=== PATIENT | female | born 1950 | race Caucasian/White ===

== ENCOUNTER → 2019-05-19 18:35 | Outpatient (CLI) | payer OTHER, SELFPAY ==
--- NOTE | 2019-05-19 18:45 | DI.RAD.S_ITS ---
PROCEDURE: XR LUMBAR SPINE 2-3V INDICATIONS: LUMBAR BACK PAIN, AGE RELATED OSTEOPOROSIS TECHNIQUE: 3 views of the lumbar spine were acquired. COMPARISON: None. FINDINGS: Bones: 5 cle-rel-fsobttt vertebrae are present. There is normal bony alignment. Degenerative endplate changes at L3-4 through L5-S1 levels are seen. No vertebral body compression fractures. No suspicious bony lesions. Soft tissues: Overlying bowel gas pattern is normal. No suspicious soft tissue calcifications. IMPRESSION: Mild degenerative disc disease in lower lumbar spine. No compression fracture or spondylolisthesis. Dictated by: Junior Morton M.D. on 05/19/2019 at 20:17 Approved by: Junior Morton M.D. on 05/19/2019 at 20:18
--- NOTE | 2019-05-19 18:45 | DI.RAD.S_ITS ---
PROCEDURE: XR HIP W PEL IF DONE LT MIN 4V INDICATIONS: AGE RELATED OSTEOPOROSIS TECHNIQUE: AP pelvis with lateral view(s) of the bilateral hip(s). COMPARISON: None. FINDINGS: Bones: No fractures or dislocations. Pelvic ring appears intact. No suspicious bony lesions. Mild bilateral hip joint space narrowing is seen. Soft tissues: The visualized bowel gas pattern is normal. No suspicious soft tissue calcifications. IMPRESSION: Very mild bilateral hip joint space narrowing. No fracture or dislocation. No evidence of avascular necrosis of femoral heads. Dictated by: Junior Morton M.D. on 05/19/2019 at 20:17 Approved by: Junior Morton M.D. on 05/19/2019 at 20:17
== END ==
PROVIDERS: Visit Provider Family Medicine
DX: M81.0 Age-related osteoporosis without current pathological fracture (principal); M54.5 Low back pain; M51.36 Other intervertebral disc degeneration, lumbar region
CPT/HCPCS: 72100; 73522

== ENCOUNTER → 2020-10-24 10:15 | Outpatient (CLI) | payer MEDICARE, OTHER, SELFPAY ==
[2020-10-25 06:07] LABS: Free T4, Direct Thyroxine 1.19 ng/dL (0.78-2.19)
[2020-10-25 21:39] LABS: Thyroid Peroxidase Antibodies <9 IU/mL (0-34)
== END ==
PROVIDERS: PCP Physician Assistant Medical; Visit Provider Physician Assistant Medical
DX: L29.9 Pruritus, unspecified (principal); E06.9 Thyroiditis, unspecified; N76.0 Acute vaginitis
CPT/HCPCS: 84439; 84443; 84481; 86376

== ENCOUNTER → 2020-11-07 09:50 | Outpatient (CLI) | payer MEDICARE, OTHER, SELFPAY ==
[2020-11-08 13:48] LABS: Candida species Positive (Negative); Gardnerella vaginalis Negative (Negative); Trichomoas vaginalis Negative (Negative)
== END ==
PROVIDERS: PCP Physician Assistant Medical; Visit Provider Obstetrics & Gynecology
DX: L29.9 Pruritus, unspecified (principal); L90.0 Lichen sclerosus et atrophicus; N76.1 Subacute and chronic vaginitis
CPT/HCPCS: 87480; 87510; 87660

== ENCOUNTER → 2021-03-21 08:37 | Outpatient (CLI) | payer MEDICARE, OTHER, SELFPAY ==
[2021-03-21 19:36] LABS: Free T3, Triiodothyronine Free 3.52 pg/mL (2.77-5.27); Free T4, Direct Thyroxine 1.48 ng/dL (0.78-2.19)
[2021-03-21 19:37] LABS: Progesterone, Total 0.84 ng/mL
== END ==
PROVIDERS: PCP Physician Assistant Medical
DX: E89.0 Postprocedural hypothyroidism (principal); Z79.890 Hormone replacement therapy
CPT/HCPCS: 82670; 82679; 84144; 84402; 84439; 84481

== ENCOUNTER → 2021-04-18 09:56 | Outpatient (CLI) | payer MEDICARE, OTHER, SELFPAY ==
[2021-04-18 22:06] LABS: COVID19 - ORCAS (NP or Nasal) Negative (Negative)
== END ==
PROVIDERS: PCP Physician Assistant Medical; Visit Provider Physician Assistant Medical
DX: Z20.822 Contact with and (suspected) exposure to COVID-19 (principal)
CPT/HCPCS: C9803; U0003

== ENCOUNTER → 2021-04-29 11:06 | Outpatient (CLI) | payer MEDICARE, OTHER, SELFPAY ==
[2021-04-29 20:06] LABS: Progesterone, Total 0.47 ng/mL
[2021-04-29 20:22] LABS: Estradiol, Total 132.7 pg/mL
== END ==
PROVIDERS: PCP Physician Assistant Medical
DX: N95.1 Menopausal and female climacteric states (principal); Z79.890 Hormone replacement therapy
CPT/HCPCS: 82670; 82679; 84144

== ENCOUNTER → 2021-04-30 10:34 | Outpatient (CLI) | payer MEDICARE, OTHER, SELFPAY ==
[2021-04-30 19:22] LABS: Add Manual Diff / Slide Review NO; Basophils Absolute Auto 0 /uL (0-100); Basophils Percent Auto 0.6 % (0-2); Eosinophils Absolute Auto 100 /uL (0-450); Eosinophils Percent Auto 1.6 % (2-4); Hematocrit 39.7 % (36-46); Hemoglobin 12.7 g/dL (12.0-16.0); Lymphocytes Absolute Auto 2200 /uL (1100-4500); Lymphocytes Percent Auto 33.9 % (25-40); Mean Corpuscular Hemoglobin 26.9 PG (26-34); Mean Corpuscular Volume 84.2 fL (80-100); Monocytes Absolute Auto 600 /uL (0-900); Neutrophils Absolute Auto 3500 /uL (1500-7000); Neutrophils Percent Auto 54.9 % (50-75); Platelet Count 235 X10^3/uL (150-400); Red Blood Cell Count 4.71 X10^6/uL (4.0-5.2); Red Cell Distribution Width 14.6 % (11.6-14.8); White Blood Cell Count 6.3 X10^3/uL (4.5-11.0)
[2021-04-30 19:24] LABS: Alanine Aminotransferase 26 IU/L (<35); Albumin 4.1 g/dL (3.5-5.0); Albumin Globulin Ratio 1.5 (1.0-2.8); Alkaline Phosphatase 56 U/L (38-126); Aspartate Aminotransferase 25 IU/L (14-36); BUN Creatinine Ratio 41.8 (6-22); Bilirubin Total 0.4 mg/dL (0.2-1.3); Blood Urea Nitrogen 23 mg/dL (7-17); Carbon Dioxide 30 mmol/L (22-32); Chloride 106 mmol/L (98-107); Estimated Glomerular Filt Rate > 60.0 mL/min (>60); Globulin 2.8 g/dL (1.7-4.1); Glucose 108 mg/dL (80-110); HEMOLYSIS < 15 (0-50); Potassium 4.2 mmol/L (3.4-5.1); Sodium 142 mmol/L (137-145); Total Protein 6.9 g/dL (6.3-8.2)
== END ==
PROVIDERS: PCP Physician Assistant Medical; Visit Provider Physician Assistant
DX: R59.9 Enlarged lymph nodes, unspecified (principal); R11.0 Nausea; R53.83 Other fatigue
CPT/HCPCS: 80053; 85025

== ENCOUNTER → 2021-05-20 13:42 | Outpatient (CLI) | payer MEDICARE, OTHER, SELFPAY ==
[2021-05-20 19:34] LABS: Alanine Aminotransferase 27 IU/L (<35); Albumin 4.6 g/dL (3.5-5.0); Albumin Globulin Ratio 1.5 (1.0-2.8); Alkaline Phosphatase 62 U/L (38-126); Aspartate Aminotransferase 23 IU/L (14-36); BUN Creatinine Ratio 40.4 (6-22); Bilirubin Total 0.5 mg/dL (0.2-1.3); Blood Urea Nitrogen 23 mg/dL (7-17); Calcium 9.3 mg/dL (8.4-10.2); Carbon Dioxide 32 mmol/L (22-32); Chloride 105 mmol/L (98-107); Estimated Glomerular Filt Rate > 60.0 mL/min (>60); Glucose 91 mg/dL (80-110); HEMOLYSIS 16 (0-50); Potassium 4.2 mmol/L (3.4-5.1); Sodium 141 mmol/L (137-145); Total Protein 7.6 g/dL (6.3-8.2)
== END ==
PROVIDERS: PCP Physician Assistant Medical; Visit Provider Physician Assistant
DX: N28.9 Disorder of kidney and ureter, unspecified (principal)
CPT/HCPCS: 80053

== ENCOUNTER 2021-06-09 18:18 | Emergency (ER) | payer MEDICARE, OTHER, SELFPAY ==
[2021-06-09 18:40] VITALS: BP 124/58; PULSE 85; RESP 16; TEMP 37; O2SAT 98; BMI 20.4
--- NOTE | 2021-06-09 21:43 | DI.RAD.S_ITS ---
PROCEDURE: XR CHEST 1V INDICATIONS: chest pain TECHNIQUE: One view of the chest was acquired. COMPARISON: None. FINDINGS: Surgical changes and devices: None. Lungs and pleura: There is hyperinflation of the lungs with flattening of the hemidiaphragms compatible with COPD. No acute consolidation. No pleural effusions or pneumothorax. Mediastinum: Mediastinal contours appear normal. Heart size is normal. Bones and chest wall: No suspicious bony lesions. Overlying soft tissues appear unremarkable. IMPRESSION: 1. No definite acute cardiopulmonary disease. 2. Findings compatible with COPD. Dictated by: Randal Martin M.D. on 06/09/2021 at 22:31 Approved by: Randal Martin M.D. on 06/09/2021 at 22:31
[2021-06-09 22:28] VITALS: PULSE 73; RESP 14; O2SAT 97
[2021-06-09 22:30] VITALS: BP 99/52; PULSE 72; RESP 12; O2SAT 97
[2021-06-09 22:36] LABS: Add Manual Diff / Slide Review NO; Basophils Absolute Auto 100 /uL (0-100); Basophils Percent Auto 0.7 % (0-2); Eosinophils Absolute Auto 100 /uL (0-450); Eosinophils Percent Auto 1.3 % (2-4); Hematocrit 39.9 % (36-46); Hemoglobin 12.9 g/dL (12.0-16.0); Lymphocytes Absolute Auto 2500 /uL (1100-4500); Lymphocytes Percent Auto 33.4 % (25-40); Mean Corpuscular HGB Conc 32.5 % (30-36); Mean Corpuscular Hemoglobin 27.1 PG (26-34); Mean Corpuscular Volume 83.5 fL (80-100); Monocytes Absolute Auto 700 /uL (0-900); Monocytes Percent Auto 9.1 % (3-14); Neutrophils Absolute Auto 4100 /uL (1500-7000); Neutrophils Percent Auto 55.5 % (50-75); Platelet Count 228 X10^3/uL (150-400); Red Blood Cell Count 4.78 X10^6/uL (4.0-5.2); Red Cell Distribution Width 14.7 % (11.6-14.8); White Blood Cell Count 7.4 X10^3/uL (4.5-11.0)
[2021-06-09 22:41] LABS: Alanine Aminotransferase 22 IU/L (<35); Albumin 4.3 g/dL (3.5-5.0); Albumin Globulin Ratio 1.4 (1.0-2.8); Alkaline Phosphatase 50 U/L (38-126); Aspartate Aminotransferase 22 IU/L (14-36); BUN Creatinine Ratio 51.9 (6-22); Bilirubin Total 0.2 mg/dL (0.2-1.3); Blood Urea Nitrogen 27 mg/dL (7-17); Calcium 9.3 mg/dL (8.4-10.2); Carbon Dioxide 27 mmol/L (22-32); Chloride 106 mmol/L (98-107); Creatine Kinase < 20 U/L (30-135); Estimated Glomerular Filt Rate > 60.0 mL/min (>60); Globulin 3.1 g/dL (1.7-4.1); Glucose 91 mg/dL (80-110); HEMOLYSIS < 15 (0-50); Lipase 52 U/L (23-300); Magnesium 1.9 mg/dL (1.6-2.3); Potassium 3.7 mmol/L (3.4-5.1); Sodium 141 mmol/L (137-145); Total Protein 7.4 g/dL (6.3-8.2)
[2021-06-09 22:53] LABS: Troponin I < 0.012 ng/mL (0.01-0.034)
[2021-06-09 23:00] VITALS: BP 117/59; PULSE 78; RESP 15; O2SAT 97
--- NOTE | 2021-06-09 23:11 | ED_ITS ---
HPI - Chest Pain General Chief Complaint: Chest Pain Stated Complaint: Chest Pain Time Seen by Provider: 06/09/21 23:02 Source: patient Mode of arrival: Ambulatory Limitations: no limitations History of Present Illness HPI narrative: Patient is a 70-year-old female who a couple days ago had a single episode where she woke up in the middle of night feeling short of breath and had some chest discomfort. She felt like get lasted for less than 1 hour and then completely resolved. Has not had the symptoms before. Has not had the symptoms since then. No fevers. No coughing. Not currently short of breath. Not currently having chest pain. No prior heart issues. Not on anticoagulation. No other associated symptoms. She felt like when she was having the symptoms that it was not worse with palpation or movement or breathing. Related Data Previous Rx's Medication Instructions Recorded propranolol 20 mg tablet 20 mg PO BID #180 tab 03/07/21 clobetasol 0.05 % topical ointment 1 applic TOPICAL DAILY #30 g 03/19/21 ondansetron HCl 4 mg tablet 4 mg PO Q8H PRN #3 tab 04/30/21 (Zofran) fluconazole 150 mg tablet 150 mg PO DAILY #1 tab 05/20/21 (Diflucan) Allergies Allergy/AdvReac Type Severity Reaction Status Date / Time No Known Drug Allergies Allergy Verified 06/09/21 18:40 Review of Systems Constitutional Constitutional: Reports system reviewed and no additional complaints, except as documented Cardiovascular Cardiovascular: Reports system reviewed and no additional complaints, except as documented Respiratory Respiratory: Reports system reviewed and no additional complaints, except as documented Gastrointestinal Gastrointestinal: Reports system reviewed and no additional complaints, except as documented Musculoskeletal Musculoskeletal: Reports system reviewed and no additional complaints, except as documented Integumentary/Breasts Skin/Breast: Reports system reviewed and no additional complaints, except as documented Hematologic/Lymphatic On Anticoagulants: No Patient History Medical History Educated about COVID-19 virus infection History of colonic polyps History of underactive thyroid History of vitamin D deficiency Screening for lipid disorders Surgical History (Updated 11/07/20 @ 08:55 by Ally Gandara MD) H/O section Social History Smoking Status: Never smoker Smoking Status: Never smoker Substance Use Type: does not use Exam Initial Vital Signs Initial Vital Signs: Vital Signs Temperature 98.6 F 06/09/21 18:40 Pulse Rate 85 06/09/21 18:40 Respiratory Rate 16 06/09/21 18:40 Blood Pressure 124/58 L 06/09/21 18:40 Pulse Oximetry 98 06/09/21 18:40 Const General: cooperative, healthy appearing, comfortable and well developed HENMT Head: normal to inspection and normocephalic Resp Effort & Inspection: normal respiratory effort Auscultation: clear to auscultation bilaterally Cardio Rate: regular rate Rhythm: regular rhythm Skin General: no rashes or lesions noted Neuro General: patient alert, patient awake, patient oriented x3 and moves all extremities Extrem General: normal to inspection and capillary refill normal Psych Appearance: grossly normal and well kempt Scores HEART Score Heart Score history: Slightly Suspicious Heart Score EKG: Normal Heart Score Age: > or = 65 years old Heart Score risk factors: No known risk factors Heart Score troponin: < or = to normal limit Heart Score Total: 2 Course Orders Ordered: ED Orders 06/09/21 21:43 XR chest 1V Stat 06/09/21 22:00 Complete Blood Count AUTO DIFF Stat Comprehensive Metabolic Panel Stat Lipase Stat Magnesium Stat Troponin & CK Cardiac Panel Stat 06/09/21 22:36 EKG-12 Lead Stat Vital Signs Vital signs: Vital Signs - 8 hr 06/09/21 22:28 06/09/21 22:30 06/09/21 23:00 Pulse Rate 73 72 78 Respiratory Rate 14 12 15 Blood Pressure 99/52 L 117/59 L Pulse Oximetry 97 97 97 MDM - Chest Pain Lab Data Attestation: I reviewed the patient's lab results. Result diagrams: 06/09/21 22:00 06/09/21 22:00 Labs: Lab Results 06/09/21 06/09/21 Range/Units 22:00 22:00 WBC 7.4 (4.5-11.0) X10^3/uL RBC 4.78 (4.0-5.2) X10^6/uL Hgb 12.9 (12.0-16.0) g/dL Hct 39.9 (36-46) % MCV 83.5 (80-100) fL MCH 27.1 (26-34) PG MCHC 32.5 (30-36) % RDW 14.7 (11.6-14.8) % Plt Count 228 (150-400) X10^3/uL Neut % (Auto) 55.5 (50-75) % Lymph % (Auto) 33.4 (25-40) % [place] % (Auto) 9.1 (3-14) % Eos % (Auto) 1.3 L (2-4) % Baso % (Auto) 0.7 (0-2) % Neut # (Auto) 4100 (1910-2961) /uL Lymph # (Auto) 2500 (8390-7587) /uL [place] # (Auto) 700 (0-900) /uL Eos # (Auto) 100 (0-450) /uL Baso # (Auto) 100 (0-100) /uL Sodium 141 (137-145) mmol/L Potassium 3.7 (3.4-5.1) mmol/L Chloride 106 (98-107) mmol/L Carbon Dioxide 27 (22-32) mmol/L BUN 27 H (7-17) mg/dL Creatinine 0.52 (0.52-1.04) mg/dL Estimated GFR > 60.0 (>60) mL/min BUN/Creatinine Ratio 51.9 H (6-22) Glucose 91 (80-110) mg/dL Calcium 9.3 (8.4-10.2) mg/dL Magnesium 1.9 (1.6-2.3) mg/dL Total Bilirubin 0.2 (0.2-1.3) mg/dL AST 22 (14-36) IU/L ALT 22 (<35) IU/L Alkaline Phosphatase 50 (38-126) U/L Total Creatine Kinase < 20 L (30-135) U/L CK-MB (CK-2) TNP CK-MB (CK-2) Rel Index TNP Troponin I < 0.012 (0.01-0.034) ng/mL Total Protein 7.4 (6.3-8.2) g/dL Albumin 4.3 (3.5-5.0) g/dL Globulin 3.1 (1.7-4.1) g/dL Albumin/Globulin Ratio 1.4 (1.0-2.8) Lipase 52 (23-300) U/L Imaging Data Chest x-ray: Radiologist's Impression: [address] [address] XRay Report Signed Patient: Yancy Starr MR#: [id number] : 1950 Acct:[id number] Age/Sex: 70 / F Date of Service: 06/09/21 Loc: ED Accession Number: [id number] ?? Procedure: XR chest 1V Ordering Provider: Karlos Hagan D.O. PROCEDURE:? XR CHEST 1V ? INDICATIONS:? chest pain ? TECHNIQUE:? One view of the chest was acquired.? ? COMPARISON:? None. ? FINDINGS:? ? Surgical changes and devices:? None.? ? Lungs and pleura:? There is hyperinflation of the lungs with flattening of the hemidiaphragms compatible with COPD.? No acute consolidation.? No pleural effusions or pneumothorax.? ? Mediastinum:? Mediastinal contours appear normal.? Heart size is normal.? ? Bones and chest wall:? No suspicious bony lesions.? Overlying soft tissues appear unremarkable.? ? IMPRESSION:? ? 1. No definite acute cardiopulmonary disease. ? 2. Findings compatible with COPD.? ? ? Dictated by: Randal Martin M.D. on 06/09/2021 at 22:31 ? ? Approved by: Randal Martin M.D. on 06/09/2021 at 22:31? ECG Data Attestation: I personally reviewed and interpreted this ECG as follows: Interpretation: Sinus rhythm Ventricular rate is 66 Normal axis Normal QRS Normal QTC No ST wave changes MDM Narrative Medical decision making narrative: Patient is not hypoxic, not tachypneic, no acute changes on her chest x-ray. EKG is unremarkable. Troponin is negative. Symptoms were couple days ago lasted less than 1 hour and then has resolved and not had any symptoms since then. Patient does require further workup to include a stress test. She was informed she needed to talk with her primary doctor regarding this. She has low risk heart score. Will discharge home with instructions follow-up with primary provider. She was given return precautions. She expressed understanding and agreement. Discharge Plan Departure Patient Disposition: Home Clinical Impression: Atypical chest pain Instructions: DI for Atypical Chest Pain Activity Restrictions/Additional Instructions: Recommend that you continue to take all of your medications as directed. I recommend that tomorrow you contact your primary doctor to discuss the indications for a stress test. Return to the emergency department for any new or worsening symptoms. Prescriptions: No Action propranolol 20 mg tablet 20 mg PO BID Qty: 180 1RF clobetasol 0.05 % ointment 1 applic topical DAILY Qty: 30 2RF Rx Instructions: Use once daily for 30 days, then 1-2 times weekly on vulva and vagina. fluconazole [Diflucan] 150 mg tablet 150 mg PO DAILY Qty: 1 0RF ondansetron HCl [Zofran] 4 mg tablet 4 mg PO Q8H PRN (Reason: nausea and vomiting) Qty: 3 0RF Rx Instructions: Take only if needed for nausea/vomiting. Referrals: nA Velazquez PA-C [Primary Care Provider] -
== END 2021-06-09 23:22 | disposition home or self-care (01) ==
PROVIDERS: Emergency Provider Emergency Medicine; PCP Physician Assistant Medical
DX: R07.89 Other chest pain (principal); R06.02 Shortness of breath
CPT/HCPCS: 36415; 71045; 80053; 82550; 83690; 83735; 84484; 85025; 93005; 99284

== ENCOUNTER → 2021-08-22 11:25 | Outpatient (CLI) | payer MEDICARE, OTHER, SELFPAY ==
[2021-08-22 18:28] LABS: Alanine Aminotransferase 25 IU/L (<35); Albumin 4.4 g/dL (3.5-5.0); Albumin Globulin Ratio 1.7 (1.0-2.8); Alkaline Phosphatase 56 U/L (38-126); Aspartate Aminotransferase 28 IU/L (14-36); Bilirubin Total 0.8 mg/dL (0.2-1.3); Blood Urea Nitrogen 18 mg/dL (7-17); Carbon Dioxide 30 mmol/L (22-32); Chloride 99 mmol/L (98-107); Cholesterol 209 mg/dL (140-199); Estimated Glomerular Filt Rate > 60.0 mL/min (>60); Globulin 2.6 g/dL (1.7-4.1); Glucose 71 mg/dL (80-110); HDL Cholesterol 48 mg/dL (40-60); HEMOLYSIS < 15 (0-50); LDL Cholesterol Calculated 145 mg/dL (<100); Potassium 3.8 mmol/L (3.4-5.1); Sodium 136 mmol/L (137-145); Triglycerides 82 mg/dL (35-150)
[2021-08-22 18:56] LABS: TSH w/ Reflex to FT4 1.64 uIU/mL (0.47-4.68)
== END ==
PROVIDERS: PCP Physician Assistant Medical; Visit Provider Physician Assistant Medical
DX: E06.9 Thyroiditis, unspecified (principal); G47.9 Sleep disorder, unspecified; N28.9 Disorder of kidney and ureter, unspecified
CPT/HCPCS: 80053; 80061; 84443

== ENCOUNTER → 2021-09-30 08:00 | Outpatient (CLI) | payer MEDICARE, OTHER, SELFPAY ==
[2021-09-30 20:37] LABS: COVID19 - ORCAS (NP or Nasal) Negative (Negative)
== END ==
PROVIDERS: PCP Physician Assistant Medical; Visit Provider Physician Assistant Medical
DX: Z20.822 Contact with and (suspected) exposure to COVID-19 (principal)
CPT/HCPCS: C9803; U0003

== ENCOUNTER → 2021-10-03 10:38 | Outpatient (CLI) | payer MEDICARE, OTHER, SELFPAY ==
--- NOTE | 2021-10-03 10:42 | DI.NM.S_ITS ---
PROCEDURE: NM BRETT PERF SPECT REST & STR Rest and exercise myocardial perfusion SPECT with gated imaging and ejection fraction RADIOPHARMACEUTICAL: 12.1 mCi Tc-99m sestamibi IV at rest and 26.6 mCi Tc-99m sestamibi IV at peak exercise. A one day-protocol was performed. INDICATIONS: atypical chest pain TECHNIQUE: Radiopharmaceutical was injected at peak stress test, and also at rest. SPECT images were obtained. SPECT myocardial perfusion images were displayed in short axis, horizontal long axis, and vertical long axis views. Gated images were reviewed using Bare[employer] software. COMPARISON: None. CARDIAC STRESS: A standard Paolo treadmill exercise tolerance test was performed by the patient under the supervision of an attending staff. The patient exercised for 7 minutes and 31 seconds; functional aerobic impairment (PATRICIA) is -8%. Hemodynamic data: There is normal blood pressure and heart rate response to exercise stress. Patient achieved 109% of maximum predicted heart rate at peak exercise. Symptoms: Patient denied chest pain during exercise. EKG: No diagnostic EKG changes of ischemia; no ectopy. FINDINGS: Raw data: There is good myocardial labeling by radiotracer. No significant motion artifacts. Byjk-as-vqmbl ratio is 0.19 (normal is less than 0.38 for sestamibi tracer, and less than 0.50 for thallium tracer). Left ventricle function: Gated images demonstrate normal left ventricle wall thickening. No segmental wall motion abnormality. No transient ischemic dilation; TID is 1.0 (normal less than 1.3). The left ventricle resting end-diastolic volume is 63 mL. Left ventricle stress ejection fraction is 86%; normal values are above 45%. Myocardial perfusion: There is normal distribution of activity in the left and right ventricular myocardium. No fixed or reversible perfusion defects. IMPRESSION: Low risk, normal treadmill nuclear stress test 1) No perfusion evidence of ischemia or infarction. 2) Normal left ventricular size, wall motion, and systolic function (EF post stress 86%). 3) No ST changes with stress. 4) No angina during the study. 5) Above average exercise capacity (10.1 METs, PATRICIA -8%). Target heart rate achieved. Appropriate BP response to exercise. 6) No prior nuclear stress test available for comparison. Dictated by: Tonny Alexis MD on 10/06/2021 at 12:51 Approved by: Tonny Alexis MD on 10/06/2021 at 12:54
--- NOTE | 2021-10-03 15:22 | PM.TREADMILL ---
Cardiac Stress Test Report Referral & Results Indication: CHEST PAIN Rest ECG: NORMAL SINUS RHYTHM Procedure Note: NM TREADMILL STRESS TEST Impression: STANDARD GAMALIEL PROTOCOL; MAX EFFORT ETT; PATRICIA -8% GOOD EXER CAPACITY; 10.1 METS; EXER TIME 7:31; MAX HR REACHED 150 (109% OF MAX HR REACHED); HAD APPROPRIATE HEMODYNAMIC RESPONSE; BASELINE ECG NORMAL SINUS RHYTHM; NONSPECIFIC ST CHANGES DURING EXER DUE TO ARTIFACT THAT RESOLVED IN RECOVERY; NO ECTOPY; DENIED CHEST DISCOMFORT; MINIMAL SOB; MIBI SCAN PENDING; PROFESSOR SCULPTURE TO REVIEW; ROSA MARIA STRONG Please note: Actual ECG tracings can be found in the PACS system.
== END ==
PROVIDERS: PCP Physician Assistant Medical; Referring Provider Physician Assistant Medical; Visit Provider Physician Assistant Medical
DX: R07.89 Other chest pain (principal)
CPT/HCPCS: 78452; 93017; A9502

== ENCOUNTER → 2021-11-14 13:14 | Outpatient (CLI) | payer MEDICARE, OTHER, SELFPAY ==
[2021-11-14 19:45] LABS: Free T3, Triiodothyronine Free 2.21 pg/mL (2.77-5.27); Free T4, Direct Thyroxine 1.16 ng/dL (0.78-2.19)
[2021-11-14 20:02] LABS: Progesterone, Total 0.41 ng/mL
[2021-11-14 20:18] LABS: Estradiol, Total 81.1 pg/mL
[2021-11-18 16:08] LABS: Testosterone, Free 2.5 pg/mL (0.0-4.2)
== END ==
PROVIDERS: PCP Physician Assistant Medical; Visit Provider Physician Assistant Medical
DX: G47.9 Sleep disorder, unspecified (principal); E89.0 Postprocedural hypothyroidism; Z79.890 Hormone replacement therapy
CPT/HCPCS: 82670; 84144; 84402; 84439; 84481

== ENCOUNTER → 2022-01-05 14:05 | Outpatient (CLI) | payer MEDICARE, OTHER, SELFPAY ==
[2022-01-05 20:46] LABS: Progesterone, Total 0.43 ng/mL
[2022-01-05 20:48] LABS: Free T3, Triiodothyronine Free 3.53 pg/mL (2.77-5.27); Free T4, Direct Thyroxine 1.11 ng/dL (0.78-2.19)
[2022-01-05 21:02] LABS: Estradiol, Total 115.4 pg/mL
== END ==
PROVIDERS: PCP Physician Assistant Medical
DX: G47.9 Sleep disorder, unspecified (principal); E03.9 Hypothyroidism, unspecified; E89.0 Postprocedural hypothyroidism; Z79.890 Hormone replacement therapy
CPT/HCPCS: 82670; 84144; 84439; 84481

== ENCOUNTER → 2022-04-14 14:36 | Outpatient (CLI) | payer MEDICARE, OTHER, SELFPAY | PROVIDERS: PCP Physician Assistant Medical | DX: E03.9 Hypothyroidism, unspecified (principal); Z77.018 Contact with and (suspected) exposure to other hazardous metals | CPT/HCPCS: 82108; 83825; 84439; 84443; 84481 ==

== ENCOUNTER → 2022-06-24 14:09 | Outpatient (CLI) | payer MEDICARE, OTHER, SELFPAY | PROVIDERS: PCP Family Medicine | DX: Z77.018 Contact with and (suspected) exposure to other hazardous metals (principal) | CPT/HCPCS: 83825 ==

== ENCOUNTER → 2022-07-28 13:12 | Outpatient (CLI) | payer MEDICARE, OTHER, SELFPAY ==
[2022-07-28 20:17] LABS: Free T3, Triiodothyronine Free 2.97 pg/mL (2.77-5.27)
[2022-07-28 20:31] LABS: TSH w/ Reflex to FT4 1.18 uIU/mL (0.47-4.68)
== END ==
PROVIDERS: PCP Family Medicine; Visit Provider Physician Assistant Medical
DX: R25.1 Tremor, unspecified (principal); G25.0 Essential tremor
CPT/HCPCS: 84443; 84481

== ENCOUNTER → 2022-09-08 15:26 | Outpatient (CLI) | payer MEDICARE, OTHER, SELFPAY ==
[2022-09-10 14:32] LABS: Candida species Negative (Negative); Gardnerella vaginalis Negative (Negative); Trichomoas vaginalis Negative (Negative)
== END ==
PROVIDERS: PCP Family Medicine; Visit Provider Physician Assistant
DX: N89.8 Other specified noninflammatory disorders of vagina (principal)
CPT/HCPCS: 87480; 87510; 87660

== ENCOUNTER → 2023-09-28 13:04 | Outpatient (CLI) | payer MEDICARE, OTHER, SELFPAY ==
[2023-09-28 20:02] LABS: Add Manual Diff / Slide Review NO; Basophils Absolute Auto 100 /uL (0-100); Basophils Percent Auto 1.1 % (0-2); Eosinophils Absolute Auto 200 /uL (0-450); Eosinophils Percent Auto 2.4 % (2-4); Hematocrit 39.6 % (36-46); Hemoglobin 12.8 g/dL (12.0-16.0); Lymphocytes Absolute Auto 1700 /uL (1100-4500); Lymphocytes Percent Auto 20.1 % (25-40); Mean Corpuscular HGB Conc 32.4 % (30-36); Mean Corpuscular Hemoglobin 27.7 PG (26-34); Mean Corpuscular Volume 85.5 fL (80-100); Monocytes Absolute Auto 700 /uL (0-900); Monocytes Percent Auto 8.3 % (3-14); Neutrophils Absolute Auto 5800 /uL (1500-7000); Neutrophils Percent Auto 68.1 % (50-75); Platelet Count 260 X10^3/uL (150-400); Red Blood Cell Count 4.63 X10^6/uL (4.0-5.2); Red Cell Distribution Width 14.1 % (11.6-14.8); White Blood Cell Count 8.6 X10^3/uL (4.5-11.0)
[2023-09-28 20:26] LABS: Alanine Aminotransferase 18 IU/L (<35); Albumin 4.5 g/dL (3.5-5.0); Albumin Globulin Ratio 1.7 (1.0-2.8); Alkaline Phosphatase 70 U/L (38-126); Aspartate Aminotransferase 23 IU/L (14-36); BUN Creatinine Ratio 39.7 (6-22); Bilirubin Total 0.4 mg/dL (0.2-1.3); Blood Urea Nitrogen 25 mg/dL (7-17); C-Reactive Protein Quant < 0.5 mg/dL (<1.0); Calcium 9.2 mg/dL (8.4-10.2); Carbon Dioxide 30 mmol/L (22-32); Chloride 105 mmol/L (98-107); Creatine Kinase 33 U/L (30-135); Erythrocyte Sedimentation Rate 4 MM/HR (0-20); Estimated Glomerular Filt Rate > 60 mL/min (>60); Globulin 2.6 g/dL (1.7-4.1); Glucose 118 mg/dL (80-110); HEMOLYSIS < 15 (0-50); Potassium 4.2 mmol/L (3.4-5.1); Sodium 140 mmol/L (137-145); Total Protein 7.1 g/dL (6.3-8.2)
[2023-09-28 20:44] LABS: TSH w/ Reflex to FT4 1.05 uIU/mL (0.47-4.68)
[2023-09-28 21:11] LABS: Vitamin B12 951 pg/mL (239-931)
[2023-09-29 11:01] LABS: Vitamin D 25 Hydroxy (D3) 33.2 ng/mL (30.0-100.0)
== END ==
PROVIDERS: PCP Family Medicine; Visit Provider Physician Assistant Medical
DX: R53.81 Other malaise (principal); R53.83 Other fatigue; E55.9 Vitamin D deficiency, unspecified; B94.8 Sequelae of other specified infectious and parasitic diseases
CPT/HCPCS: 80053; 82306; 82550; 82607; 84443; 85025; 85651; 86140

== ENCOUNTER → 2023-10-18 14:10 | Outpatient (CLI) | payer MEDICARE, OTHER, SELFPAY ==
[2023-10-18 20:44] LABS: Folate > 20.0 ng/mL (2.76-20.0); Vitamin B12 876 pg/mL (239-931)
[2023-10-22 09:28] LABS: Methylmalonic Acid,Serum 165 nmol/L (0-378)
== END ==
PROVIDERS: PCP Family Medicine; Visit Provider Naturopath
DX: U09.9 Post COVID-19 condition, unspecified (principal); R53.83 Other fatigue; Z78.9 Other specified health status
CPT/HCPCS: 82607; 82746; 83921

== ENCOUNTER → 2024-01-07 12:37 | Outpatient (CLI) | payer MEDICARE, OTHER, SELFPAY | PROVIDERS: PCP Physician Assistant Medical; Visit Provider Family Medicine | DX: N39.0 Urinary tract infection, site not specified (principal) | CPT/HCPCS: 87086 ==

== ENCOUNTER → 2024-01-11 09:46 | Outpatient (CLI) | payer MEDICARE, OTHER, SELFPAY | PROVIDERS: PCP Physician Assistant Medical; Visit Provider Physician Assistant | DX: N89.8 Other specified noninflammatory disorders of vagina (principal) | CPT/HCPCS: 87480; 87491; 87510; 87591; 87798; 87801 ==